=== PATIENT | female | born 1955 | race Caucasian/White ===

== ENCOUNTER → 2017-03-20 10:09 | Outpatient (CLI) | payer BC ==
[2013-05-15 20:39] VITALS: BMI 38.8
[~2017-03-20 10:09] MED LIST: BENTYL10 MG PO; FERROUS SULFAT325 MG PO; GLUCOPHAGE850 MG PO; NEURONTIN 100100 MG PO; PERCOCET 10/3251 TA1 PO; ZANTAC 2525 MG PO
== END | disposition home or self-care (01) ==
LOC: D.NM 10:09
DX: R10.9 Unspecified abdominal pain (principal)

== ENCOUNTER → 2017-03-28 09:00 | Outpatient (CLI) | payer BC ==
[2013-05-15 20:39] VITALS: BMI 38.8
== END | disposition home or self-care (01) ==
LOC: D.MAMMO 09:00
DX: Z12.31 Encounter for screening mammogram for malignant neoplasm of breast (principal)